=== PATIENT | female | born 1980 | race Caucasian/White ===

== ENCOUNTER 2018-03-13 11:13 | Emergency (ER) | payer OTHER ==
[~2018-03-13] VITALS: Ht 165.1 cm; Wt 104.3 kg
--- NOTE | 2018-03-13 12:01 | NUR ---
Patient discharged to home in stable conditon. Written and verbal after care instructions given to patient. Patient verbalizes understanding of instructions.
== END 2018-03-13 12:02 | disposition home or self-care (01) ==
LOC: ER 11:13
DX: S63.617A Unspecified sprain of left little finger, initial encounter (principal); W01.0XXA Fall on same level from slipping, tripping and stumbling without subsequent striking against object, initial encounter; Y93.89 Activity, other specified; Y92.89 Other specified places as the place of occurrence of the external cause; Y99.8 Other external cause status
CPT/HCPCS: 29130; 73130; 99284; A4663

== ENCOUNTER 2018-03-29 23:04 | Emergency (ER) | payer OTHER ==
[~2018-03-29] VITALS: Ht 170.2 cm; Wt 131.5 kg
--- NOTE | 2018-03-29 23:26 | NUR ---
Dr. Montanez at bedside for MSE.
[2018-03-29] MEDS ORDERED: SULFACETAMIDE SOD 10% OPHT DR 15 ML BOTTLE OP ONE (23:30)
[2018-03-29] MEDS ORDERED: SULFACETAMIDE SOD 10% OPHT DR 15 ML BOTTLE ONE (23:36)
--- NOTE | 2018-03-29 23:39 | NUR ---
Patient discharged to home in stable conditon. Written and verbal after care instructions given. Patient verbalizes understanding of instructions. Patient ambulated out of ER with steady gait, no acute signs of distress, VSS, all belongings taken.
[2018-03-29 23:40] VITALS: BP 171/102
== END 2018-03-29 23:41 | disposition home or self-care (01) ==
LOC: ER 23:08
DX: H10.9 Unspecified conjunctivitis (principal)
CPT/HCPCS: 99283; A4663

== ENCOUNTER 2018-04-05 10:14 | Emergency (ER) | payer OTHER ==
[~2018-04-05] VITALS: Ht 170.2 cm; Wt 131.5 kg
--- NOTE | 2018-04-05 10:35 | NUR ---
Patient discharged to home in stable conditon. Written and verbal after care instructions given. Patient verbalizes understanding of instructions.
== END 2018-04-05 10:36 | disposition home or self-care (01) ==
LOC: ER 10:14
DX: J06.9 Acute upper respiratory infection, unspecified (principal)
CPT/HCPCS: 99283; A4663

== ENCOUNTER 2019-11-24 17:59 | Emergency (ER) | payer OTHER ==
[~2019-11-24] VITALS: Ht 170.2 cm; Wt 131.5 kg
--- NOTE | 2019-11-24 18:57 | NUR ---
Report given to Devin Martin RN
[2019-11-24] MEDS ORDERED: KETOROLAC TROMETHAMINE 60 MG INJ IM ONE ×2 (19:00→19:09)
[2019-11-24 19:04] LABS: *URINE HCG, QUAL NEGATIVE (NEGATIVE)
--- NOTE | 2019-11-24 19:22 | NUR ---
Patient discharged to home in stable conditon. Written and verbal after care instructions given. Patient verbalizes understanding of instructions. Walked out of ER withno distress noted.
[2019-11-24 19:23] VITALS: BP 140/88
== END 2019-11-24 19:24 | disposition home or self-care (01) ==
LOC: ER 18:01
DX: M54.5 Low back pain (principal); V49.49XA Driver injured in collision with other motor vehicles in traffic accident, initial encounter; Y93.89 Activity, other specified; Y92.89 Other specified places as the place of occurrence of the external cause; Y99.8 Other external cause status
CPT/HCPCS: 84703; 96372; 99283; J1885; A4663

== ENCOUNTER 2022-11-30 15:52 | Emergency (ER) | payer OTHER ==
[~2022-11-30] VITALS: Ht 170.2 cm; Wt 99.8 kg
--- NOTE | 2022-11-30 16:30 | NUR ---
at bedside for evaluation.
[2022-11-30] MEDS ORDERED: IV NORMAL SALINE 1000 ML BAG IV ONE (16:45)
[2022-11-30 16:55] LABS: HEMATOCRIT 39.9 % (31.2-41.9); MEAN CORPUSCULAR HEMOGLOBIN 28.8 uug (24.7-32.8); MEAN CORPUSCULAR VOLUME 86.3 fL (75.5-95.3); PLATELET COUNT (AUTO) 232 K/uL (179-408)
[2022-11-30 17:06] LABS: CARBON DIOXIDE 30 mmol/L (21-32); CHLORIDE 103 mmol/L (98-107); CREATININE 0.8 mg/dL (0.6-1.3); GLUCOSE 96 mg/dL (74-106); POTASSIUM 3.9 mmol/L (3.5-5.1); UREA NITROGEN, BLOOD 12 mg/dL (7-18)
[2022-11-30 17:13] LABS: ALANINE AMINOTRANSFERASE 16 U/L (14-59); ALKALINE PHOSPHATASE 58 U/L (50-136); ASPARTATE AMINOTRANSFERASE 14 U/L (15-37); BILIRUBIN,DIRECT 0.1 mg/dL (0.0-0.2); BILIRUBIN,TOTAL 0.4 mg/dL (0.2-1.0); TOTAL PROTEIN, SERUM 7.4 g/dL (6.4-8.2)
[2022-11-30 17:18] LABS: *BILIRUBIN,URIN NEGATIVE (NEGATIVE); *CLARITY,URINE CLEAR (CLEAR); *COLOR,URINE YELLOW (YELLOW); *KETONES,URINE 1+ (NEGATIVE); *UROBILINOGEN,URINE 0.2 E.U./dl (NORMAL); LEUKOCYTE ESTERASE ,URINE NEGATIVE (NEGATIVE); NITRITE, URINE NEGATIVE (NEGATIVE); UGLUCOSE NEGATIVE (NEGATIVE)
[2022-11-30 17:20] LABS: *BLOOD, URINE NEGATIVE (NEGATIVE)
[2022-11-30 17:24] LABS: *URINE HCG, QUAL NEGATIVE (NEGATIVE)
[2022-11-30 18:05] VITALS: BP 145/84
--- NOTE | 2022-11-30 18:05 | NUR ---
Patient discharged to home in stable condition. Written and verbal after care instructions given. Patient verbalizes understanding of instructions. Stressed follow up or return to ER for worsening s/s.
== END 2022-11-30 18:07 | disposition home or self-care (01) ==
LOC: ER 16:08
DX: R42 Dizziness and giddiness (principal); I10 Essential (primary) hypertension; E66.9 Obesity, unspecified; Z68.34 Body mass index [BMI] 34.0-34.9, adult
CPT/HCPCS: 99285; 96360; 71045; 80076; 80048; 81001; 84703; 85025; 85730; 84484; 36415; 93005; J7040; A4663

== ENCOUNTER 2023-05-02 12:17 | Emergency (ER) | payer OTHER ==
[~2023-05-02] VITALS: Ht 170.2 cm; Wt 101.2 kg
--- NOTE | 2023-05-02 12:59 | NUR ---
seen and examined by MD Amos
[2023-05-02] MEDS ORDERED: FLUORESCEIN SODIUM 1 MG STRIP ONE (13:25)
[2023-05-02] MEDS ORDERED: TETRACAINE HCL 0.5% OPHT DROP 2 ML BOTTLE ONE (13:25)
[2023-05-02 13:58] VITALS: BP 118/70; TEMP 98; O2SAT 99
== END 2023-05-02 13:58 | disposition home or self-care (01) ==
LOC: ER 12:17
DX: L55.0 Sunburn of first degree (principal); H57.12 Ocular pain, left eye; I10 Essential (primary) hypertension
CPT/HCPCS: A4663